=== PATIENT | female | born 1980 | race African-American/Black ===

== ENCOUNTER 2017-09-06 18:46 | Emergency (ER) | payer OTHER ==
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
[2017-09-06 19:41] LABS: BASOPHILS # (AUTO) 0.1 10^3/uL (0.0-0.1); BASOPHILS % (AUTO) 1.2 %; EOSINOPHILS # (AUTO) 0.1 10^3/uL (0.0-0.7); EOSINOPHILS % (AUTO) 1.5 %; LYMPHOCYTES # (AUTO) 3.7 10^3/uL (1.5-3.5); LYMPHOCYTES % (AUTO) 45.4 %; MEAN CORPUSCULAR HEMOGLOBIN 29.7 pg (27.0-31.0); MEAN CORPUSCULAR HGB CONC 33.3 g/dL (32.0-36.0); MEAN CORPUSCULAR VOLUME 89.1 fL (81.0-99.0); MEAN PLATELET VOLUME 6.6 fL (7.9-10.8); MONOCYTES # (AUTO) 0.4 10^3/uL (0.0-1.0); MONOCYTES % (AUTO) 4.9 %; NEUTROPHILS # (AUTO) 3.8 10^3/uL (1.5-6.6); PLT - PLATELET COUNT 303 10^3/uL (130-450); RED BLOOD COUNT 4.37 10^6/uL (4.20-5.40); RED CELL DISTRIBUTION WIDTH 13.6 % (12.0-15.0); WHITE BLOOD COUNT 8.1 x10^3/uL (4.8-10.8)
[2017-09-06] MEDS ORDERED: ACETAMINOPHEN 325 MG TABLET PO STA (20:00)
[2017-09-06 20:01] LABS: HCG,QUALITATIVE BLOOD NEGATIVE
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
[2017-09-06 21:23] VITALS: BP 133/71
== END 2017-09-06 21:22 | disposition home or self-care (01) ==
LOC: ED 18:46
DX: N93.9 Abnormal uterine and vaginal bleeding, unspecified (principal); S20.211A Contusion of right front wall of thorax, initial encounter; V89.2XXA Person injured in unspecified motor-vehicle accident, traffic, initial encounter
CPT/HCPCS: 36415; 76856; 84703; 85025; 93976; 99283; A9270

== ENCOUNTER 2018-09-19 01:28 | Emergency (ER) | payer OTHER ==
[2018-09-19 02:00] LABS: BASOPHILS # (AUTO) 0.1 10^3/uL (0.0-0.1); BASOPHILS % (AUTO) 0.4 %; EOSINOPHILS # (AUTO) 0.1 10^3/uL (0.0-0.7); EOSINOPHILS % (AUTO) 0.5 %; HGB - HEMOGLOBIN 13.8 g/dL (12.0-16.0); LYMPHOCYTES # (AUTO) 3.1 10^3/uL (1.5-3.5); LYMPHOCYTES % (AUTO) 22.7 %; MEAN CORPUSCULAR HEMOGLOBIN 29.7 pg (27.0-31.0); MEAN CORPUSCULAR HGB CONC 32.9 g/dL (32.0-36.0); MEAN CORPUSCULAR VOLUME 90.2 fL (81.0-99.0); MEAN PLATELET VOLUME 6.8 fL (7.9-10.8); MONOCYTES # (AUTO) 0.9 10^3/uL (0.0-1.0); MONOCYTES % (AUTO) 6.3 %; NEUTROPHILS # (AUTO) 9.7 10^3/uL (1.5-6.6); NEUTROPHILS % (AUTO) 70.1 %; PLT - PLATELET COUNT 298 10^3/uL (130-450); RED BLOOD COUNT 4.64 10^6/uL (4.20-5.40); RED CELL DISTRIBUTION WIDTH 14.2 % (12.0-15.0); WHITE BLOOD COUNT 13.8 x10^3/uL (4.8-10.8)
[2018-09-19 02:01] LABS: BILIRUBIN,URINE NEGATIVE (NEGATIVE); GLUCOSE, URINE (UA) NEGATIVE (NEGATIVE); KETONES,URINE (UA) 15 mg/dL (NEGATIVE); LEUKOCYTE ESTERASE, URINE NEGATIVE (NEGATIVE); NITRITE,URINE NEGATIVE (NEGATIVE); OCCULT BLOOD,URINE SMALL (NEGATIVE); PROTEIN,URINE NEGATIVE (NEGATIVE); UROBILINOGEN,URINE 0.2 (NORMAL) E.U./dL (NORMAL)
[2018-09-19 02:07] LABS: CLARITY,URINE CLEAR (CLEAR)
[2018-09-19 02:10] LABS: ALBUMIN 4.7 g/dL (3.2-5.5); ALBUMIN/GLOBULIN RATIO 1.5 (1.0-2.2); BILIRUBIN,TOTAL 0.5 mg/dL (0.2-1.0); CALCIUM 9.9 mg/dL (8.5-10.3); CREATININE 0.9 mg/dL (0.4-1.0); TOTAL PROTEIN 7.8 g/dL (6.7-8.2)
[2018-09-19 02:13] LABS: HCG UR QUAL NEGATIVE
[2018-09-19 02:14] LABS: BACTERIA,URINE Few /HPF (None Seen); RBC,URINE 0-5 /HPF (0-5); SQUAMOUS EPITHELIAL CELL,UR MOD Squamous (<= Few)
--- NOTE | 2018-09-19 02:17 | ED Physician Documentation ---
PD HPI NVD - Stated complaint Stated Complaint: NV - Chief complaint Chief Complaint: Abd Pain - History obtained from History obtained from: Patient - History of Present Illness Timing - onset: How many hours ago (2) Timing - duration: Hours (2) Timing - details: Abrupt onset, Waxing and waning Pain level now: 3 Associated symptoms: Abdominal pain. No: Fever Improved by: No: Eating, Laying still, Vomiting, BM, Position, Meds Worsened by: Eating Similar symptoms before: Has not had sx before Recently seen: Not recently seen Review of Systems Constitutional: reports: Reviewed and negative Cardiac: reports: Reviewed and negative Respiratory: reports: Reviewed and negative GI: reports: Abdominal Pain, Nausea, Vomiting, Diarrhea : denies: Dysuria, Frequency PD PAST MEDICAL HISTORY - Past Medical History Past Medical History: No Cardiovascular: None Respiratory: None Endocrine/Autoimmune: None GI: None VISION MIXER: None : None HEENT: None Psych: None Musculoskeletal: None Derm: None - Past Surgical History Past Surgical History: No - Present Medications Home Medications: Ambulatory Orders Medication Instructions Recorded Confirmed Diphenoxylate/Atropine [Lomotil] 1 each PO QID PRN #10 tablet 09/19/18 Ondansetron HCl [Zofran] 4 mg PO Q6HR PRN #14 tablet 09/19/18 - Allergies Allergies/Adverse Reactions: Allergies Allergy/AdvReac Type Severity Reaction Status Date / Time clavulanic acid Allergy Severe Edema Verified 09/06/17 19:02 - Social History Does the pt smoke?: No Smoking Status: Never smoker Does the pt drink ETOH?: No Does the pt have substance abuse?: No - Immunizations Immunizations are current?: Yes - POLST Patient has POLST: No PD ED PE NORMAL - Vitals Vital signs reviewed: Yes - General General: Alert and oriented X 3, No acute distress, Well developed/nourished - HEENT HEENT: Moist mucous membranes - Cardiac Cardiac: RRR, No murmur, No gallop, No rub - Respiratory Respiratory: No respiratory distress, Clear bilaterally - Abdomen Abdomen: Normal bowel sounds, Soft, Non tender, Non distended - Derm Derm: Normal color, Warm and dry Results - Vitals Vitals: Vital Signs - 24 hr 09/19/18 09/19/18 09/19/18 01:34 01:53 03:43 Temperature 36.9 C 37.1 C Heart Rate 84 74 Respiratory 20 16 16 Rate Blood Pressure 124/68 100/57 L O2 Saturation 100 100 Oxygen O2 Source Room air - Labs Labs: Laboratory Tests 09/19/18 09/19/18 09/19/18 01:42 01:50 01:50 WBC 13.8 H RBC 4.64 Hgb 13.8 Hct 41.9 MCV 90.2 MCH 29.7 MCHC 32.9 RDW 14.2 Plt Count 298 MPV 6.8 L Neut # (Auto) 9.7 H Lymph # (Auto) 3.1 [place] # (Auto) 0.9 Eos # (Auto) 0.1 Baso # (Auto) 0.1 Absolute Nucleated RBC 0.01 Nucleated RBC % 0.1 Sodium 137 Potassium 3.1 L Chloride 104 Carbon Dioxide 23 Anion Gap 10.0 BUN 21 H Creatinine 0.9 Estimated GFR (MDRD) 86 L Glucose 132 H Calcium 9.9 Total Bilirubin 0.5 AST 17 ALT 17 Alkaline Phosphatase 56 Total Protein 7.8 Albumin 4.7 Globulin 3.1 Albumin/Globulin Ratio 1.5 Lipase 31 Urine Color YELLOW Urine Clarity CLEAR Urine pH 6.0 Ur Specific [place] 1.020 Urine Protein NEGATIVE Urine Glucose (UA) NEGATIVE Urine Ketones 15 H Urine Occult Blood SMALL H Urine Nitrite NEGATIVE Urine Bilirubin NEGATIVE Urine Urobilinogen 0.2 (NORMAL) Ur Leukocyte Esterase NEGATIVE Urine RBC 0-5 Urine WBC 0-3 Ur Squamous Epith Cells MOD Squamous H Urine Bacteria Few Ur Microscopic Review INDICATED Urine Culture Comments NOT INDICATED Urine HCG, Qual NEGATIVE PD MEDICAL DECISION MAKING - ED course Complexity details: reviewed results, re-evaluated patient, considered differential, d/w patient ED course: improved after IV NS, toradol, zofran, and lomotil Departure - Departure Disposition: 01 Home, Self Care Clinical Impression: Vomiting, Abdominal pain, Diarrhea Condition: Good Instructions: ED Abdominal Pain Unkn Cause, ED Vomiting Diarrhea Nonspecific Ad Follow-Up: ARNOLD LAL [Primary Care Provider] - Prescriptions: Ondansetron HCl [Zofran] 4 mg PO Q6HR PRN #14 tablet PRN Reason: Nausea / Vomiting Diphenoxylate/Atropine [Lomotil] 1 each PO QID PRN #10 tablet PRN Reason: Diarrhea Discharge Date/Time: 09/19/18 04:04
[2018-09-19] MEDS ORDERED: ONDANSETRON 4 MG/2 ML VIAL IVP STA (02:28)
[2018-09-19] MEDS ORDERED: SODIUM CHLORIDE 0.9% 1,000 ML IV STA (02:28)
[2018-09-19] MEDS ORDERED: KETOROLAC 30 MG/ML VIAL IVP STA (02:34)
[2018-09-19 03:44] VITALS: BP 100/57
[2018-09-19] MEDS ORDERED: DIPHENOX/ATROPINE 2.5/0.025 MG TABLET PO STA (03:47)
== END 2018-09-19 04:04 | disposition home or self-care (01) ==
LOC: ED 01:28
DX: R10.9 Unspecified abdominal pain (principal); R11.2 Nausea with vomiting, unspecified; R19.7 Diarrhea, unspecified
CPT/HCPCS: 36415; 80053; 81001; 81025; 83690; 85025; 96374; 96375; 99283; A9270; 81003; 87086

== ENCOUNTER 2018-11-02 02:52 | Emergency (ER) | payer OTHER ==
[2018-11-02] MEDS ORDERED: SODIUM CHLORIDE 0.9% 1,000 ML IV ONE (03:16)
--- NOTE | 2018-11-02 03:20 | ED Physician Documentation ---
History of Present Illness - Stated complaint Stated Complaint: LOWER ABD PX - Chief complaint Chief Complaint: Abd Pain - History obtained from History obtained from: Patient - Additonal information Additional information: Patient is a approximately 5-6 weeks presenting for repeat measurement of hCG. Patient was seen 2 days ago at another facility for abdominal pain, vaginal bleeding and potential miscarriage. Patient reports that she was told that she had a UTI and has been taking antibiotics for this, however, is unsure of the name of the antibiotic. Patient reports continued ab dominal cramping, as well as vaginal bleeding but no changes in urination or stool, fever, nausea, or vomiting. Patient is currently on fertility treatment. No other improving or worsening factors noted. Review of Systems Constitutional: denies: Fever GI: reports: Abdominal Pain. 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 : None HEENT: None Psych: None Musculoskeletal: None Derm: None - Past Surgical History Past Surgical History: No - Present Medications Home Medications: Ambulatory Orders Medication Instructions Recorded Confirmed Diphenoxylate/Atropine [Lomotil] 1 each PO QID PRN #10 tablet 09/19/18 Ondansetron HCl [Zofran] 4 mg PO Q6HR PRN #14 tablet 09/19/18 - Allergies Allergies/Adverse Reactions: Allergies Allergy/AdvReac Type Severity Reaction Status Date / Time clavulanic acid Allergy Severe Edema Verified 09/06/17 19:02 - Social History Does the pt smoke?: No Smoking Status: Never smoker Does the pt drink ETOH?: No Does the pt have substance abuse?: No - Immunizations Immunizations are current?: Yes - POLST Patient has POLST: No PD ED PE NORMAL - Vitals Vital signs reviewed: Yes - General General: Alert and oriented X 3, No acute distress, Well developed/nourished - HEENT HEENT: Atraumatic, Moist mucous membranes - Cardiac Cardiac: RRR, No murmur - Respiratory Respiratory: No respiratory distress, Clear bilaterally - Abdomen Abdomen: Normal bowel sounds, Soft, Non tender, Non distended, Other (Nongravid) - Derm Derm: Normal color, Warm and dry, No rash - Extremities Extremities: No deformity, No tenderness to palpate - Neuro Neuro: Alert and oriented X 3, No motor deficit, No sensory deficit - Psych Psych: Normal mood, Normal affect Results - Vitals Vitals: Vital Signs - 24 hr 11/02/18 03:07 Temperature 36.9 C Heart Rate 74 Respiratory 20 Rate Blood Pressure 125/76 O2 Saturation 100 Oxygen O2 Source Room air - Labs Labs: Laboratory Tests 11/02/18 11/02/18 11/02/18 02:58 04:27 04:27 WBC 10.6 RBC 4.28 Hgb 13.0 Hct 38.9 MCV 90.9 MCH 30.4 MCHC 33.5 RDW 13.1 Plt Count 297 MPV 6.5 L Neut # (Auto) 5.4 Lymph # (Auto) 4.3 H [place] # (Auto) 0.5 Eos # (Auto) 0.2 Baso # (Auto) 0.1 Absolute Nucleated RBC 0.00 Nucleated RBC % 0.0 Sodium 142 Potassium 3.4 L Chloride 106 Carbon Dioxide 25 Anion Gap 11.0 BUN 8 Creatinine 0.7 Estimated GFR (MDRD) 115 Glucose 89 Calcium 9.6 Total Bilirubin 0.8 AST 15 ALT 13 Alkaline Phosphatase 47 Total Protein 7.1 Albumin 4.3 Globulin 2.8 Albumin/Globulin Ratio 1.5 Lipase 38 HCG, Quant Urine Color YELLOW Urine Clarity CLEAR Urine pH 7.5 Ur Specific [place] <=1.005 Urine Protein NEGATIVE Urine Glucose (UA) NEGATIVE Urine Ketones NEGATIVE Urine Occult Blood LARGE H Urine Nitrite NEGATIVE Urine Bilirubin NEGATIVE Urine Urobilinogen 0.2 (NORMAL) Ur Leukocyte Esterase NEGATIVE Urine RBC 6-10 H Urine WBC 0-3 Ur Squamous Epith Cells FEW Squamous Urine Bacteria Rare Ur Microscopic Review INDICATED Urine Culture Comments NOT INDICATED Blood Type Antibody Screen 11/02/18 11/02/18 04:27 04:27 WBC RBC Hgb Hct MCV MCH MCHC RDW Plt Count MPV Neut # (Auto) Lymph # (Auto) [place] # (Auto) Eos # (Auto) Baso # (Auto) Absolute Nucleated RBC Nucleated RBC % Sodium Potassium Chloride Carbon Dioxide Anion Gap BUN Creatinine Estimated GFR (MDRD) Glucose Calcium Total Bilirubin AST ALT Alkaline Phosphatase Total Protein Albumin Globulin Albumin/Globulin Ratio Lipase HCG, Quant 4.41 Urine Color Urine Clarity Urine pH Ur Specific [place] Urine Protein Urine Glucose (UA) Urine Ketones Urine Occult Blood Urine Nitrite Urine Bilirubin Urine Urobilinogen Ur Leukocyte Esterase Urine RBC Urine WBC Ur Squamous Epith Cells Urine Bacteria Ur Microscopic Review Urine Culture Comments Blood Type A POSITIVE Antibody Screen NEGATIVE PD MEDICAL DECISION MAKING - ED course Complexity details: reviewed results, re-evaluated patient, considered differential, d/w patient, d/w family ED course: Patient has most likely been experiencing a miscarriage that may be nearly resolved or completed. Physical exam is relatively unremarkable. Also considered other etiologies including IUP, ectopic , ovarian torsion, ovarian cyst, placental issues such as previa or abruption, but feel these are less likely. Patient received IV fluids, but did not require medication. Screening lab work returned relatively unremarkable. hCG quant declined from 11-4.4, again pointing towards miscarriage. Rh testing positive and patient will not require RhoGam. Urinalysis did not show florid infection or other significant concerns. Ultrasound did not find evidence of ectopic or IUP. Discussed results and recommendations with patient and , including supportive cares, use of antibiotics, strict return precautions, and appropriate follow-up. Patient voiced understanding and is comfortable with discharge plan. Departure - Departure Disposition: 01 Home, Self Care Clinical Impression: Miscarriage Condition: Good Instructions: ED Miscarriage Completed Follow-Up: ARNOLD LAL [Primary Care Provider] - Within 3 Days Comments: Recommend continuation of antibiotics to treat bladder infection as previously instructed. Recommend follow-up with your primary care physician, KEY ACCOUNT MANAGER, or fertility physician in the next 2 to 3 days. Please return to ED sooner if experience worsening symptoms or other concerns.
[2018-11-02 03:46] LABS: BILIRUBIN,URINE NEGATIVE (NEGATIVE); GLUCOSE, URINE (UA) NEGATIVE (NEGATIVE); KETONES,URINE (UA) NEGATIVE (NEGATIVE); LEUKOCYTE ESTERASE, URINE NEGATIVE (NEGATIVE); NITRITE,URINE NEGATIVE (NEGATIVE); OCCULT BLOOD,URINE LARGE (NEGATIVE); PH,URINE 7.5 PH (5.0-7.5); PROTEIN,URINE NEGATIVE (NEGATIVE); UROBILINOGEN,URINE 0.2 (NORMAL) E.U./dL (NORMAL)
[2018-11-02 03:48] LABS: CLARITY,URINE CLEAR (CLEAR)
[2018-11-02 03:52] LABS: BACTERIA,URINE Rare /HPF (None Seen); SQUAMOUS EPITHELIAL CELL,UR FEW Squamous (<= Few)
[2018-11-02 04:38] LABS: BASOPHILS # (AUTO) 0.1 10^3/uL (0.0-0.1); BASOPHILS % (AUTO) 1.1 %; EOSINOPHILS # (AUTO) 0.2 10^3/uL (0.0-0.7); EOSINOPHILS % (AUTO) 1.9 %; LYMPHOCYTES # (AUTO) 4.3 10^3/uL (1.5-3.5); LYMPHOCYTES % (AUTO) 40.7 %; MEAN CORPUSCULAR HEMOGLOBIN 30.4 pg (27.0-31.0); MEAN CORPUSCULAR HGB CONC 33.5 g/dL (32.0-36.0); MEAN CORPUSCULAR VOLUME 90.9 fL (81.0-99.0); MEAN PLATELET VOLUME 6.5 fL (7.9-10.8); MONOCYTES # (AUTO) 0.5 10^3/uL (0.0-1.0); MONOCYTES % (AUTO) 5.2 %; NEUTROPHILS # (AUTO) 5.4 10^3/uL (1.5-6.6); NEUTROPHILS % (AUTO) 51.1 %; PLT - PLATELET COUNT 297 10^3/uL (130-450); RED BLOOD COUNT 4.28 10^6/uL (4.20-5.40); RED CELL DISTRIBUTION WIDTH 13.1 % (12.0-15.0); WHITE BLOOD COUNT 10.6 x10^3/uL (4.8-10.8)
[2018-11-02 04:52] LABS: ALBUMIN 4.3 g/dL (3.2-5.5); ALBUMIN/GLOBULIN RATIO 1.5 (1.0-2.2); BILIRUBIN,TOTAL 0.8 mg/dL (0.2-1.0); CALCIUM 9.6 mg/dL (8.5-10.3); CREATININE 0.7 mg/dL (0.4-1.0); TOTAL PROTEIN 7.1 g/dL (6.7-8.2)
--- NOTE | 2018-11-02 05:37 | Ultrasound Report ---
Reason: Pain, bleeding, 5-6 weeks Procedure Date: 11/02/2018 Accession Number: [id number] / [id number] Procedure: US - Transvaginal CPT Code: FULL RESULT: EXAM: FIRST TRIMESTER OBSTETRIC ULTRASOUND (Less than 11 weeks) EXAM DATE: 11/02/2018 04:15 AM. CLINICAL HISTORY: Pain, bleeding, 5-6 weeks . LMP: 09/23/2018, 5 weeks 5 days. COMPARISONS: PELVIC NON OB W/DOPPLER LTD 09/06/2017 8:26 PM. TECHNIQUE: Transvaginal ultrasound examination with static image documentation. FINDINGS: Gestational Sac: No intrauterine or extrauterine seen. Placenta: Not visible at this gestational age. Amniotic Fluid: Not accurately assessed at this gestational age. Uterus: Unremarkable anteverted appearance. Probable small amount of avascular blood products within the endometrial canal given history of bleeding. Mildly heterogeneous uterus without definitive mass. No cystic focus to suggest intrauterine . There is an unusual striation passing through the central portion of the endometrial canal, possibly fibrous band or related to blood products. Cervix: Unremarkable. Right Ovary: Volume 6 cc. Normal echotexture and blood flow. Left Ovary: Volume 10 cc. Normal echotexture and blood flow. Free Fluid: None. Other: None. IMPRESSION: No intrauterine or extrauterine seen. Clinical and ultrasound follow-up suggested to ensure viability of and to entirely exclude ectopic. [facility]
[2018-11-02 05:52] VITALS: BP 112/83
== END 2018-11-02 05:51 | disposition home or self-care (01) ==
LOC: ED 02:52
DX: O03.9 Complete or unspecified spontaneous abortion without complication (principal)
CPT/HCPCS: 36415; 76830; 80053; 81001; 81003; 83690; 84702; 85025; 86850; 86900; 86901; 87086; 96360; 99283

== ENCOUNTER 2019-02-15 17:59 | Emergency (ER) | payer OTHER ==
[2019-02-15 18:35] LABS: BILIRUBIN,URINE NEGATIVE (NEGATIVE); GLUCOSE, URINE (UA) NEGATIVE (NEGATIVE); KETONES,URINE (UA) NEGATIVE (NEGATIVE); LEUKOCYTE ESTERASE, URINE NEGATIVE (NEGATIVE); NITRITE,URINE NEGATIVE (NEGATIVE); OCCULT BLOOD,URINE TRACE-INTA (NEGATIVE); PROTEIN,URINE NEGATIVE (NEGATIVE); UROBILINOGEN,URINE 0.2 (NORMAL) E.U./dL (NORMAL)
[2019-02-15 18:56] LABS: CLARITY,URINE CLEAR (CLEAR); HCG UR QUAL POSITIVE
--- NOTE | 2019-02-15 18:57 | ED Physician Documentation ---
PD HPI ABD PAIN - Stated complaint Stated Complaint: FEMALE - Chief complaint Chief Complaint: Abd Pain - History obtained from History obtained from: Patient - History of Present Illness Timing - onset: Yesterday (G3, P0 at 7 weeks gestation who had IUI presents with spotting for 3 days and a little more bleeding that is less than a menses since yesterday with minimal pain. 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 : None HEENT: None Psych: None Musculoskeletal: None Derm: None - Past Surgical History Past Surgical History: No - Present Medications Home Medications: Ambulatory Orders Medication Instructions Recorded Confirmed Diphenoxylate/Atropine [Lomotil] 1 each PO QID PRN #10 tablet 09/19/18 Ondansetron HCl [Zofran] 4 mg PO Q6HR PRN #14 tablet 09/19/18 - Allergies Allergies/Adverse Reactions: Allergies Allergy/AdvReac Type Severity Reaction Status Date / Time clavulanic acid Allergy Severe Edema Verified 09/06/17 19:02 - Social History Does the pt smoke?: No Smoking Status: Never smoker Does the pt drink ETOH?: No Does the pt have substance abuse?: No - Immunizations Immunizations are current?: Yes - POLST Patient has POLST: No PD ED PE NORMAL - Vitals Vital signs reviewed: Yes - General General: Alert and oriented X 3, No acute distress - Abdomen Abdomen: Normal bowel sounds, Soft, Non tender - Female Female : Other (To my eye on bedside ultrasound there is some material in the uterus but I am unable to pick out a pole or heartbeat.) - Neuro Neuro: Alert and oriented X 3, Normal speech Results - Vitals Vitals: Vital Signs - 24 hr 02/15/19 02/15/19 02/15/19 18:05 19:22 21:32 Temperature 36.6 C 36.8 C Heart Rate 108 H 86 78 Respiratory 18 17 17 Rate Blood Pressure 135/87 H 132/75 H 113/76 O2 Saturation 100 100 100 Oxygen O2 Source Room air - Labs Labs: Laboratory Tests 02/15/19 02/15/19 02/15/19 18:21 19:07 19:07 WBC 10.3 RBC 4.03 L Hgb 12.6 Hct 35.6 L MCV 88.3 MCH 31.3 H MCHC 35.4 RDW 12.6 Plt Count 282 MPV 8.1 Neut # (Auto) 6.1 Lymph # (Auto) 3.5 [place] # (Auto) 0.6 Eos # (Auto) 0.1 Baso # (Auto) 0.1 Absolute Nucleated RBC 0.00 Nucleated RBC % 0.0 Sodium 137 Potassium 3.5 Chloride 102 Carbon Dioxide 23 Anion Gap 12.0 BUN 11 Creatinine 0.6 Estimated GFR (MDRD) 137 Glucose 117 H Calcium 9.3 HCG, Quant Urine Color YELLOW Urine Clarity CLEAR Urine pH 6.0 Ur Specific [place] 1.015 Urine Protein NEGATIVE Urine Glucose (UA) NEGATIVE Urine Ketones NEGATIVE Urine Occult Blood TRACE-INTA Urine Nitrite NEGATIVE Urine Bilirubin NEGATIVE Urine Urobilinogen 0.2 (NORMAL) Ur Leukocyte Esterase NEGATIVE Ur Microscopic Review NOT INDICATED Urine Culture Comments NOT INDICATED Urine HCG, Qual POSITIVE 02/15/19 19:07 WBC RBC Hgb Hct MCV MCH MCHC RDW Plt Count MPV Neut # (Auto) Lymph # (Auto) [place] # (Auto) Eos # (Auto) Baso # (Auto) Absolute Nucleated RBC Nucleated RBC % Sodium Potassium Chloride Carbon Dioxide Anion Gap BUN Creatinine Estimated GFR (MDRD) Glucose Calcium HCG, Quant 22665.00 Urine Color Urine Clarity Urine pH Ur Specific [place] Urine Protein Urine Glucose (UA) Urine Ketones Urine Occult Blood Urine Nitrite Urine Bilirubin Urine Urobilinogen Ur Leukocyte Esterase Ur Microscopic Review Urine Culture Comments Urine HCG, Qual - Rads (name of study) Pelvic/ob sono Radiology: EMP read contemporaneously (Single intrauterine gestational sac 5 weeks and 5 days based on diameter discordant with clinical dates (which are known for sure since she did IUI). 10 made a measured gestational sac without yolk sac or pole and large complex fluid in the endometrium consistent with blood.) PD MEDICAL DECISION MAKING - ED course Complexity details: reviewed old records (Review of previous records shows that her blood type is known to be a positive.) ED course: 38-year-old woman with history of miscarriages presents with bleeding. Conception was via IUI. Current results unfortunately are most consistent with miscarriage in process but 48-hour beta-hCG was advised. Departure - Departure Disposition: 01 Home, Self Care Clinical Impression: , threatened Condition: Good Record reviewed to determine appropriate education?: Yes Instructions: ED Miscarriage Poss Comments: Repeat beta-hCG in 2 days, take the copy of the results from today with you for that appointment. Return for new or worsening symptoms. [facility]
[2019-02-15 19:11] LABS: BASOPHILS # (AUTO) 0.1 10^3/uL (0.0-0.1); BASOPHILS % (AUTO) 0.7 %; EOSINOPHILS # (AUTO) 0.1 10^3/uL (0.0-0.7); EOSINOPHILS % (AUTO) 0.7 %; HGB - HEMOGLOBIN 12.6 g/dL (12.0-16.0); LYMPHOCYTES # (AUTO) 3.5 10^3/uL (1.5-3.5); LYMPHOCYTES % (AUTO) 33.6 %; MEAN CORPUSCULAR HEMOGLOBIN 31.3 pg (27.0-31.0); MEAN CORPUSCULAR HGB CONC 35.4 g/dL (32.0-36.0); MEAN CORPUSCULAR VOLUME 88.3 fL (81.0-99.0); MEAN PLATELET VOLUME 8.1 fL (7.9-10.8); MONOCYTES # (AUTO) 0.6 10^3/uL (0.0-1.0); MONOCYTES % (AUTO) 5.4 %; NEUTROPHILS # (AUTO) 6.1 10^3/uL (1.5-6.6); NEUTROPHILS % (AUTO) 59.2 %; PLT - PLATELET COUNT 282 10^3/uL (130-450); RED BLOOD COUNT 4.03 10^6/uL (4.20-5.40); RED CELL DISTRIBUTION WIDTH 12.6 % (12.0-15.0); WHITE BLOOD COUNT 10.3 x10^3/uL (4.8-10.8)
[2019-02-15 19:20] LABS: CALCIUM 9.3 mg/dL (8.5-10.3); CREATININE 0.6 mg/dL (0.4-1.0)
--- NOTE | 2019-02-15 21:31 | Ultrasound Report ---
Reason: vb 7w Procedure Date: 02/15/2019 Accession Number: [id number] / [id number] Procedure: US - OB First Trimester CPT Code: FULL RESULT: EXAM: FIRST TRIMESTER OBSTETRIC ULTRASOUND (Less than 11 weeks) EXAM DATE: 02/15/2019 08:47 PM. CLINICAL HISTORY: 38-year-old female. Vaginal bleeding. 7 weeks . LMP: 12/27/2018. COMPARISONS: None. TECHNIQUE: Transabdominal and transvaginal ultrasound examination with static image documentation. CLINICAL DATES: EGA 7 weeks 1 day with PARDEEP 10/03/2019 based on LMP. ASSESSMENT: Gestational Sac: Single intrauterine. Mean gestational sac diameter: 10 mm = 5 weeks 5 days. Embryo: Not identified. Yolk sac: Not identified. Amniotic fluid: Not accurately assessed at this gestational age. Early placenta: Not visible at this gestational age. Other: Large amount of complex fluid in the endometrial cavity suggesting blood. MATERNAL STRUCTURES: Uterus: Anteverted. Unremarkable. Cervix: Closed. Right Ovary/Adnexa: The ovary measures 3.0 x 2.2 x 2.0 cm, volume 7.1 cc. 1.4 x 1.4 x 1.6 cm thick walled ovarian cyst suggesting a corpus luteum. Left Ovary/Adnexa: The ovary measures 4.5 x 1.9 x 3.9 cm, volume 17.2 cc. Unremarkable. Free Fluid: None. Other: None. IMPRESSION: 1. Single intrauterine gestational sac at EGA 5 weeks 5 days based on mean sac diameter, which is mildly discordant with clinical dates. 2. Assigned dating is PARDEEP 7 weeks 1 day based on LMP. 3. The 10 mm gestational sac shows no yolk sac or pole. Correlate with serial quantitative beta hCG. Ultrasound follow-up after 2 weeks can be performed as clinically indicated. 4. Large amount of complex fluid in the endometrium consistent with blood. [facility]
[2019-02-15 21:32] VITALS: BP 113/76
== END 2019-02-15 21:55 | disposition home or self-care (01) ==
LOC: ED 17:59
DX: O20.0 Threatened abortion (principal); Z3A.01 Less than 8 weeks gestation of pregnancy; O09.291 Supervision of pregnancy with other poor reproductive or obstetric history, first trimester
CPT/HCPCS: 36415; 76801; 76817; 80048; 81001; 81003; 81025; 84702; 85025; 86900; 86901; 87086; 99283; 99284

== ENCOUNTER 2019-02-25 23:19 | Emergency (ER) | payer OTHER ==
--- NOTE | 2019-02-26 00:33 | ED Physician Documentation ---
PD HPI FEMALE - Stated complaint Stated Complaint: ABD PX/EXPECTED MISCARRIAGE - Chief complaint Chief Complaint: Abd Pain - History obtained from History obtained from: Patient - History of Present Illness Timing - onset: How many days ago (2) Timing - details: Gradual onset, Intermittant, Waxing and waning Pain level max: 6 Associated symptoms: Back pain, Pelvic pain. 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 She followed up on the at [facility], where she had another ultrasound, and this revealed tissue without cardiac activity. she was given options of d+c, misoprostal, or waiting to see if miscarriage would complete spontaneously. Patient decided to try the misoprostal. She took the first dose on Tuesday, and within four hours, she passed large amount of tissue and clots of blood. This was associated with pain across her pelvis that radiated around to both sides of her lower back. She presents at this time due to ongoing cramping pain lower pelvis and low back. she says the bleeding has slowed significantly and she is no longer passing clots nor tissue. 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(s) : None HEENT: None Psych: None Musculoskeletal: None Derm: None - Past Surgical History Past Surgical History: No - Present Medications Home Medications: Ambulatory Orders Medication Instructions Recorded Confirmed Diphenoxylate/Atropine [Lomotil] 1 each PO QID PRN #10 tablet 09/19/18 Ondansetron HCl [Zofran] 4 mg PO Q6HR PRN #14 tablet 09/19/18 Hydrocodone/Acetaminophen 1 - 2 each PO Q6HR PRN #14 tablet 02/26/19 [Hydrocodone-Acetamin 5-325 mg] - Allergies Allergies/Adverse Reactions: Allergies Allergy/AdvReac Type Severity Reaction Status Date / Time clavulanic acid Allergy Severe Edema Verified 02/25/19 23:30 - Social History Does the pt smoke?: No Smoking Status: Never smoker Does the pt drink ETOH?: No Does the pt have substance abuse?: No - Immunizations Immunizations are current?: Yes - POLST Patient has POLST: No PD ED PE NORMAL - Vitals Vital signs reviewed: Yes - General General: Alert and oriented X 3, No acute distress, Well developed/nourished - Cardiac Cardiac: RRR, No murmur - Respiratory Respiratory: No respiratory distress, Clear bilaterally - Abdomen Abdomen: Normal bowel sounds, Soft, Non tender, Non distended - Back Back: No CVA TTP Results - Vitals Vitals: Oxygen O2 Source Room air - Rads (name of study) pelvic US Radiology: Prelim report reviewed, See rad report PD MEDICAL DECISION MAKING - ED course Complexity details: reviewed results, re-evaluated patient, considered differential, d/w patient, d/w family Departure - Departure Disposition: 01 Home, Self Care Clinical Impression: Miscarriage Condition: Good Instructions: ED Miscarriage Completed Follow-Up: [facility] [Provider Group] Prescriptions: Hydrocodone/Acetaminophen [Hydrocodone-Acetamin 5-325 mg] 1 - 2 each PO Q6HR PRN #14 tablet PRN Reason: Pain Discharge Date/Time: 02/26/19 04:29
[2019-02-26] MEDS ORDERED: HYDROcod/ACETAM 5/325 MG TABLET PO STA (01:01)
--- NOTE | 2019-02-26 03:32 | Ultrasound Report ---
Reason: possible retained POC Procedure Date: 02/26/2019 Accession Number: [id number] / [id number] Procedure: US - OB First Trimester CPT Code: FULL RESULT: EXAM: FIRST TRIMESTER OBSTETRIC ULTRASOUND (Less than 11 weeks) EXAM DATE: 02/26/2019 01:56 AM CLINICAL HISTORY: Possible retained POC. LMP: Unknown. COMPARISONS: OB FIRST TRIMESTER 02/15/2019 8:07 PM. TECHNIQUE: Transabdominal and transvaginal ultrasound examination with static image documentation. FINDINGS: Gestational Sac: An intrauterine gestational sac is not evident on this examination. There is a small 4 x 5 mm hypoechoic abnormality within the right endometrial horn, uncertain etiology. MATERNAL STRUCTURES: Uterus: Normal position of the uterus. Either a subseptate versus arcuate uterus. Right-sided endometrial horn measures up to 14 mm in thickness. Left-sided endometrial horn measures up to 12 mm in thickness. At the level of the uterine body, endometrial thickness measures up to 13.8 mm. No definite internal vascularity is noted on this exam. Cervix: Closed. Right Ovary/Adnexa: Right ovary is best seen transabdominally, measuring 3.4 x 2.1 x 4.1 cm, 15 mL. There is a hypoechoic abnormality within the right ovary, measuring 14 mm, possibly corpus luteum cyst. Left Ovary/Adnexa: Normal appearance of the left ovary is noted, measuring 3.4 x 1.1 x 1.6 cm, 3 mL. Free Fluid: None. Other: None. IMPRESSION: 1. Intrauterine gestational sac is not identified. There is a tiny 5 mm hypoechoic abnormality within the right endometrial horn, of uncertain etiology. It is favored to represent a small amount of trapped fluid. Correlation with serial beta hCG values and/or imaging as clinically warranted. 2. Thickened endometrial stripe complex in this patient with an apparent arcuate uterus. No definite internal vascularity. As such, retained products of conception felt less likely, but not entirely excluded. 3. Physiologic appearance of the ovaries noted bilaterally. RADIA
[2019-02-26 04:30] VITALS: BP 116/75
--- NOTE | 2019-02-26 04:47 | Ultrasound Report ---
Reason: possible retained POC Procedure Date: 02/26/2019 Accession Number: [id number] / [id number] Procedure: US - OB Transvaginal CPT Code: FULL RESULT: EXAM: FIRST TRIMESTER OBSTETRIC ULTRASOUND (Less than 11 weeks) EXAM DATE: 02/26/2019 01:56 AM CLINICAL HISTORY: Possible retained POC. LMP: Unknown. COMPARISONS: OB FIRST TRIMESTER 02/15/2019 8:07 PM. TECHNIQUE: Transabdominal and transvaginal ultrasound examination with static image documentation. FINDINGS: Gestational Sac: An intrauterine gestational sac is not evident on this examination. There is a small 4 x 5 mm hypoechoic abnormality within the right endometrial horn, uncertain etiology. MATERNAL STRUCTURES: Uterus: Normal position of the uterus. Either a subseptate versus arcuate uterus. Right-sided endometrial horn measures up to 14 mm in thickness. Left-sided endometrial horn measures up to 12 mm in thickness. At the level of the uterine body, endometrial thickness measures up to 13.8 mm. No definite internal vascularity is noted on this exam. Cervix: Closed. Right Ovary/Adnexa: Right ovary is best seen transabdominally, measuring 3.4 x 2.1 x 4.1 cm, 15 mL. There is a hypoechoic abnormality within the right ovary, measuring 14 mm, possibly corpus luteum cyst. Left Ovary/Adnexa: Normal appearance of the left ovary is noted, measuring 3.4 x 1.1 x 1.6 cm, 3 mL. Free Fluid: None. Other: None. IMPRESSION: 1. Intrauterine gestational sac is not identified. There is a tiny 5 mm hypoechoic abnormality within the right endometrial horn, of uncertain etiology. It is favored to represent a small amount of trapped fluid. Correlation with serial beta hCG values and/or imaging as clinically warranted. 2. Thickened endometrial stripe complex in this patient with an apparent arcuate uterus. No definite internal vascularity. As such, retained products of conception felt less likely, but not entirely excluded. 3. Physiologic appearance of the ovaries noted bilaterally. RADIA
== END 2019-02-26 04:29 | disposition home or self-care (01) ==
LOC: ED 23:19
DX: O03.9 Complete or unspecified spontaneous abortion without complication (principal)
CPT/HCPCS: 76801; 76817; 99284; A9270